=== PATIENT | female | born 1995 | race African-American/Black ===

== ENCOUNTER 2021-09-30 16:49 | Emergency (ER) | payer SELFPAY ==
[~2021-09-30] VITALS: Ht 172.7 cm; Wt 61.2 kg
[2021-09-30 16:56] VITALS: BP_SYST 127
[2021-09-30] MEDS ORDERED: NAPR-1172 PO (18:35)
[2021-09-30 18:45] VITALS: BP_SYST 125
== END 2021-09-30 18:45 | disposition home or self-care (01) ==
LOC: SED 16:49
DX: S43.401A Unspecified sprain of right shoulder joint, initial encounter (principal); S33.9XXA Sprain of unspecified parts of lumbar spine and pelvis, initial encounter; Z79.899 Other long term (current) drug therapy; V49.49XA Driver injured in collision with other motor vehicles in traffic accident, initial encounter; Y93.89 Activity, other specified; Y92.89 Other specified places as the place of occurrence of the external cause; Y99.8 Other external cause status
CPT/HCPCS: 72170-TC; 73030; 81025; 99284

== ENCOUNTER 2022-05-29 14:58 | Emergency (ER) | payer OTHER ==
[~2022-05-29] VITALS: Ht 172.7 cm; Wt 73.0 kg
[~2022-05-29 14:58] MED LIST: NAPR-1172 PO
[2022-05-29 15:26] VITALS: BP_SYST 122
--- NOTE | 2022-05-29 16:00 | NUR ---
PT CAME TO ER DRIVEN BY SELF WITH COMPLAIN OF ABCESS IN BETWEEN HER BUTTOCKS. EXP PAIN 10/10 STARTED YESTERDAY. PT VITALS ARE WITHIN NORMAL LIMITS. PT IN BED WITH BED LOWERED LOCKED AND RAILS UP. WILL CONTINUE TO MONITOR
[2022-05-29] MEDS ORDERED: LIDOCAINE/EPI 2% 1:100000 20 ML VIAL INJ ONE (16:30)
--- NOTE | 2022-05-29 16:48 | NUR ---
Patient given written and verbal discharge instructions and verbalizes understanding. ER DR JACKI GOODWIN discussed with patient the results and treatment provided. Patient in stable condition. ID arm band removed. Rx of CEPHALEXIN, NAPROXEN given. Patient educated on pain management and to follow up with PMD. Pain Scale . Opportunity for questions provided and answered. Medication side effect fact sheet provided.
[2022-05-29] MEDS ORDERED: CEPH-548 PO (17:07)
[2022-05-29] MEDS ORDERED: NAPR-690 PO (17:07)
--- NOTE | 2022-05-29 17:12 | NUR ---
LIDOCANE ADMIN BY DR ECHEVERRIA DURING PROCEDURE
[2022-05-29 17:18] VITALS: BP_SYST 130
== END 2022-05-29 17:18 | disposition home or self-care (01) ==
LOC: SED 14:58
DX: K61.1 Rectal abscess (principal); K62.89 Other specified diseases of anus and rectum; Z79.899 Other long term (current) drug therapy
CPT/HCPCS: 99283; 99284

== ENCOUNTER 2022-05-31 15:36 | Emergency (ER) | payer OTHER ==
[~2022-05-31 15:36] MED LIST changes: +CEPH-548 PO; +NAPR-690 PO
[2022-05-31 15:43] VITALS: BP_SYST 125
--- NOTE | 2022-05-31 16:14 | NUR ---
Patient to ER bed 6 to gown for evaluation. Side rails up. Report given to BESS LARA.
--- NOTE | 2022-05-31 16:17 | NUR ---
ER at bedside examining patient.
--- NOTE | 2022-05-31 16:20 | NUR ---
Patient here for a wound recheck. Patient had a perirectal abscess which was i & D in the Ed. Patient denies fever, chills, diarrhea or any other symptoms at this time.
[2022-05-31 16:41] VITALS: BP_SYST 125
--- NOTE | 2022-05-31 16:41 | NUR ---
Patient given written and verbal discharge instructions and verbalizes understanding. ER MD discussed with patient the results and treatment provided. Patient in stable condition. ID arm band removed. Patient educated on pain management and to follow up with PMD. Pain Scale 0/10 Opportunity for questions provided and answered.
== END 2022-05-31 16:41 | disposition home or self-care (01) ==
LOC: SED 15:36
DX: Z48.00 Encounter for change or removal of nonsurgical wound dressing (principal); Z79.899 Other long term (current) drug therapy
CPT/HCPCS: 99281